=== PATIENT | male | born 1955 | race Caucasian/White ===

== ENCOUNTER 2020-05-09 06:50 | Observation (INO) | payer MEDICARE, OTHER ==
[2020-05-04 13:59] LABS: BASOPHILS # (AUTO) 0.1 (0.0-0.1); BASOPHILS % 0.8 % (0.0-1.0); EOSINOPHILS # (AUTO) 0.1 (0.0-0.4); EOSINOPHILS % 1.1 % (0.0-6.0); HEMATOCRIT 43.1 % (38.2-49.6); HEMOGLOBIN 13.3 g/dL (14.0-18.0); LYMPHOCYTES # (AUTO) 4.2 (1.0-3.2); LYMPHOCYTES % 43.7 % (18.0-39.1); MEAN CORPUSCULAR HEMOGLOBIN 27.7 pg (28-32); MEAN CORPUSCULAR HGB CONC 30.9 g/dL (31-35); MEAN CORPUSCULAR VOLUME 89.6 fL (81-99); MONOCYTES # (AUTO) 0.7 (0.2-0.8); MONOCYTES % 7.3 % (4.4-11.3); NEUTROPHILS # (AUTO) 4.5 (2.1-6.9); NEUTROPHILS % 46.7 % (38.7-80.0); PLATELET COUNT 221 x10e3/uL (140-360); RED BLOOD COUNT 4.81 x10e6/uL (4.3-5.7); RED CELL DISTRIBUTION WIDTH 14.7 % (11.7-14.4)
[~2020-05-09] VITALS: Ht 188 cm; Wt 93.4 kg
[~2020-05-09 06:50] MED LIST: METHADONE PO
[2020-05-09] MEDS ORDERED: CELECOXIB 200 MG CAP ONE (07:55)
[2020-05-09] MEDS ORDERED: GABAPENTIN 300 MG CAP ONE (07:55)
[2020-05-09] MEDS ORDERED: DEXAMETHASONE SOD PHOS 10 MG/1 ML VIAL ONE ×2 (07:55→08:18)
[2020-05-09] MEDS ORDERED: ROPIVACAINE 246.25 MG, EPINEPHRINE HCL 1:1000 1ML 0.5 MG, CLONIDINE HCL 0.08 MG, KETORO... INJ ONE ×5 (08:00)
[2020-05-09] MEDS ORDERED: CEFAZOLIN SOD 1 GM/NS 50ML 100 ML IV ONE (08:28)
[2020-05-09] MEDS ORDERED: SODIUM CHLORIDE 0.9% 500ML 500 ML ONE (08:32)
[2020-05-09] MEDS ORDERED: VANCOMYCIN HCL 500 MG ONE ×2 (08:32→09:06)
[2020-05-09] MEDS ORDERED: BUPIVACAINE 7.5MG/ML /DEXTROSE 82.5MG/ML 2 ML AMP INJ ONE (08:33)
[2020-05-09] MEDS ORDERED: TRANEXAMIC ACID 1,000 MG/10 ML ML ONE (09:06)
[2020-05-09] MEDS ORDERED: ACETAMINOPHEN 650 MG SUPP PR PRN (10:45)
[2020-05-09] MEDS ORDERED: DIPHENHYDRAMINE HCL INJ 50 MG/ML VIAL IV PRN (10:45)
[2020-05-09] MEDS ORDERED: ONDANSETRON HCL INJ 2MG/ML 2ML 2 MG/ML VIAL IV PRN (10:45)
[2020-05-09] MEDS ORDERED: SODIUM CHLORIDE 0.9% 1000ML 1,000 ML IV SCH (10:45)
[2020-05-09] MEDS ORDERED: HYDROCODONE/APAP 5MG-325MG TAB PO PRN (10:45)
[2020-05-09] MEDS ORDERED: DOCUSATE SODIUM 100 MG CAP PO PRN (10:45)
[2020-05-09] MEDS ORDERED: KETOROLAC TROMETHAMINE 30 MG/ML VIAL IV PRN (10:45)
--- OUTSIDE RECORDS SUMMARY | 2020-05-09 11:00 | XMS REPORT | Continuity of Care Document ---
Author Author [facility] Address [address] [place] [address] Phone Unavailable Care Team Providers Care Color Card Maker Name Role Phone Unavailable Unavailable Payers Payer Name Policy Type Policy Number Effective Date Expiration Date S ource Problems This patient has no known problems. Allergies, Adverse Reactions, Alerts This patient has no known allergies or adverse reactions. Medications This patient has no known medications. Procedures This patient has no known procedures. Results This patient has no known results.
[2020-05-09] MEDS ORDERED: HYDROMORPHONE 1MG/1ML INJ ONE (11:04)
--- NOTE | 2020-05-09 11:38 | Diagnostic Imaging Report ---
Pelvis, one view INDICATION: ^POST OP ^[id number] ^1100 ^IN PACU Comparison: None available. Discussion: Postoperative changes from two part left hip arthroplasty are noted. Single view demonstrates anatomic alignment of the left acetabular and femoral stems. No acetabular screws are noted. Pubic symphysis is not widened. Sacrum is obscured by overlying bowel gas. Right hip is negative for significant narrowing or dislocation. IMPRESSION: Postoperative changes from left hip arthroplasty. Signed by: Trever Tobar MD on 05/09/2020 11:34 AM
[2020-05-09] MEDS ORDERED: HYDROCODONE/APAP 5MG-325MG TAB ONE (14:04)
[2020-05-09] MEDS ORDERED: KETOROLAC TROMETHAMINE 30 MG/ML VIAL ONE (14:04)
--- NOTE | 2020-05-09 14:08 | Operative Report ---
DATE OF PROCEDURE: 05/09/2020 SURGEON: Cholo Tavera MD POOL LIFEGUARD: Gopi Sawyer PA-C. PREOPERATIVE DIAGNOSIS: Osteoarthritis, left hip. POSTOPERATIVE DIAGNOSIS: Osteoarthritis, left hip. PROCEDURE: Left total hip arthroplasty. INDICATIONS: The patient is a 65-year-old gentleman, who has advanced osteoarthritis of his left hip. He has failed conservative management and would like to proceed with a left total hip replacement. The risks and benefits of the procedure have been discussed. The hospital stay, implants, and recovery have been discussed. The added challenges due to his chronic pain management were explained. He states he understands and wishes to proceed. DESCRIPTION OF PROCEDURE: The patient was brought to the operating room and placed under general anesthetic. He received prophylactic antibiotics and tranexamic acid in the holding area. He was not a candidate for any type of regional anesthetic due to his long history of back surgery. He was positioned in the right lateral decubitus position. His left hip was prepped and draped in a sterile manner. A preoperative time-out was performed. A posterior approach was initiated to the left hip. Hemostasis was obtained with electrocautery. The deep fascia was incised and a Charnley self-retaining retractor was placed. The posterior capsule was carefully exposed. Further hemostasis was obtained with electrocautery. A portion of the short external rotators and the posterior capsule were released. The hip was dislocated and an oscillating saw was used to resect the femoral head. Complete loss of articular cartilage was known in the weightbearing surface of the femoral head. Acetabular retractors were carefully placed. The calcified labral remnant was excised with a long-handled knife. A [employer] system was used throughout the case. The true floor of the acetabulum was established with a 46 mm reamer. The socket was then sequentially reamed to 55 mm. This accomplished bleeding hemispherical cancellous bone. A subchondral cysts was debrided and packed with autologous bone graft taken from the femoral head. A 56 mm outer diameter [employer] OsseoTi socket was then impacted into place. Excellent fixation was felt to be obtained. A highly cross-linked polyethylene liner with a 36 mm inner diameter was then impacted into place. Care was taken to make sure that there was no soft tissue interposition. The hip had been irrigated on several occasions using a shower tip pulsatile lavage. A portion of a 100 mL premixed pericapsular MAI injection was placed into the surrounding soft tissue. An anterior osteophyte was removed with a curved osteotome. The socket was packed with a moistly soaked lap sponge and attention was directed towards the proximal femur. A box cutting osteotome and taper pin reamer were used to establish entry to the femoral canal. The Taperloc broaches were impacted. A size 14 stem had good canal fill and rotational stability for trial reduction. A standard 36 mm head restored good range of motion, stability, and limb length. The trial implants were removed. The hip was further irrigated with a shower tip pulsatile lavage. The taper lock implant was then seated into place. A 36 mm ceramic head with a standard neck was then seated onto the clean and dry stem. A final reduction was performed. The posterior capsule was carefully repaired with interrupted #2 Ethibond. The short external rotators were severely contracted and not repairable. A 500 mg of vancomycin powder was sprinkled into the wound. The remainder of the MAI injection was placed into the more superficial soft tissue. The deep fascia was closed with interrupted #2 Ethibond. The skin was closed with subcuticular Vicryl and sameer. A sterile Aquacel bandage was applied. The patient was returned to the supine position. He was extubated and transported to the recovery room in stable condition. Estimated blood loss was 100 mL. All needle and sponge counts were correct. Cholo Tavera MD DR/CINDI /[id number]
[2020-05-09 14:55] VITALS: BP 123/77
--- NOTE | 2020-05-09 15:15 | NUR ---
DR OROPEZA OFFICE PREARRANGED FOLLOWING DISCHARGE PLAN OF: HOME TO [address] [place] [address] HEALTH WITH INTERIM CONFIRMED WITH [employer] [phone] DME 3 IN ONE COMMODE. AND ROLLING WALKER WITH WHEELS. PROVIDED BY [employer] [phone] RUPERTO SIGNED AND ON CHART COPY LEFT WITH PATIENT GAVE CARD FOR QUESTIONS AND OR CONCERNS.
[2020-05-09 15:38] VITALS: BP 123/77
[2020-05-09] MEDS ORDERED: ACETAMINOPHEN 1000 MG/100 ML IV PRN (16:00)
--- NOTE | 2020-05-09 16:43 | NUR ---
Received patient from PACU at 1422 after taking report from Rajani. Patient was assessed, oriented to room, procedures, and plan of care. Patient has an abductor in place and a C/D/I dressing to the left hip. Patient has a 22g right wrist IV and dressing is C/D/I. Patient has no other issues or complaints at this time.
[2020-05-09] MEDS: CELECOXIB 100 MG CAP PO SCH (17:20)
[2020-05-09] MEDS: CEFAZOLIN SOD 1 GM/NS 50ML 50 ML IV SCH (17:20)
[2020-05-09] MEDS ORDERED: MIDAZOLAM HCL 2 MG/2 ML VIAL ONE (17:58)
[2020-05-09] MEDS ORDERED: FENTANYL CITRATE/PF 100MCG/2 ML INJ ONE (17:58)
--- NOTE | 2020-05-09 19:10 | NUR ---
RECEIVED REPORT FROM PREVIOUS NURSE. CALL LIGHT WITHIN REACH. PATIENT IN BED. PATIENT IN NO DISTRESS OR PAIN
[2020-05-09] MEDS ORDERED: SEVOFLURANE INHAL SOLN 250 ML PEN BTL ONE (19:39)
[2020-05-09] MEDS ORDERED: LIDOCAINE HCL 2% LOCAL INJ 5 ML SDV VIAL INJ ONE (19:39)
[2020-05-09] MEDS ORDERED: ONDANSETRON HCL INJ 2MG/ML 2ML 2 MG/ML VIAL ONE (19:39)
[2020-05-09] MEDS ORDERED: PROPOFOL IV EMULSION 10 MG/ML 20 ML VIAL ONE (19:39)
[2020-05-09 19:57] VITALS: BP 123/77
[2020-05-09 20:00] VITALS: BP 102/59
[2020-05-09 20:32] VITALS: BP 97/58
[2020-05-09] MEDS ORDERED: ZOLPIDEM TARTRATE 5 MG TAB PO PRN (21:00)
[2020-05-09] MEDS: HYDROCODONE/APAP 7.5MG-325MG 1 EA TAB PO PRN (22:53)
[2020-05-10] VITALS: BP 108/66
[2020-05-10] MEDS: CEFAZOLIN SOD 1 GM/NS 50ML 50 ML IV SCH ×2 (02:07→08:51)
[2020-05-10 04:00] VITALS: BP 115/68
[2020-05-10 05:12] LABS: HEMATOCRIT 35.9 % (38.2-49.6)
[2020-05-10] MEDS: HYDROCODONE/APAP 7.5MG-325MG 1 EA TAB PO PRN ×2 (06:22→13:13)
--- NOTE | 2020-05-10 07:20 | NUR ---
GAVE BEDSIDE SHIFT REPORT TO ONCOMING NURSE. CALL LIGHT WITHIN REACH. PATIENT IN BED. HOURLY ROUNDING PERFORMED
[2020-05-10 08:00] VITALS: BP 154/76
[2020-05-10] MEDS: CELECOXIB 100 MG CAP PO SCH (08:51)
[2020-05-10 09:18] VITALS: BP 154/76
[2020-05-10 11:57] VITALS: BP 140/67
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
--- NOTE | 2020-05-10 14:09 | NUR ---
Patient received discharge order from Dr. Tavera. Patient was given discharge instructions, prescriptions, and education. Patient verbalized understanding. Patient IV came out this AM at 1000 and was covered with a C/D/I dressing. Patient had no other issues or complaints. Patient was wheeled to car at 1408.
[2020-05-10] MEDS ORDERED: RIVAROXABAN 10 MG TABLET PO SCH (17:00)
== END 2020-05-10 14:14 | disposition home health service (06) ==
LOC: OR 06:50 → PACU V 10:31 → MED/SURG 14:27
PROVIDERS: ADMIT Specialist; ATTEND Specialist
DX: M16.12 Unilateral primary osteoarthritis, left hip (principal); Z88.5 Allergy status to narcotic agent; Z88.0 Allergy status to penicillin; Z88.8 Allergy status to other drugs, medicaments and biological substances; F17.200 Nicotine dependence, unspecified, uncomplicated; G89.29 Other chronic pain; Z79.891 Long term (current) use of opiate analgesic; Z11.59 Encounter for screening for other viral diseases
CPT/HCPCS: 27130; 36415 ×3; 72170; 82948; 85014; 85018; 85025; 86850; 86900; 86920; 97110; 97116 ×2; 97139; 97161; 97530; C1734; C1776 ×2; G0378 ×2; J0171; J0690 ×2; J1100; J1170; J1885 ×2; J2001; J2250; J2405; J2704; J2795; J3010; J3370; J7040; U0002